=== PATIENT | female | born 1975 | race Caucasian/White ===

== ENCOUNTER 2024-11-09 13:53 | Emergency (ER) | payer MEDICAID ==
[~2024-11-09] VITALS: Ht 177.8 cm; Wt 146.5 kg
--- NOTE | 2024-11-09 15:56 | DVH ---
CHEST RADIOGRAPH Indication: fall blurred vision Technique: Single frontal view of the chest was obtained COMPARISON: None FINDINGS: Lines and Tubes: None Lungs: Clear Pleura: No effusion. No pneumothorax. Cardiomediastinal contours: Unremarkable Bones: Unremarkable IMPRESSION: No acute disease.
[2024-11-09 15:57] LABS: Basophils # (auto) 0.1 10 ^3/uL (0-0.2); Basophils % (auto) 0.9 % (0.0-2.0); Eosinophils # (auto) 0.2 10 ^3/uL (0-0.8); Eosinophils % (auto) 1.6 % (0.0-7.0); Hematocrit 45.5 % (36.0-46.0); Hemoglobin 15.7 g/dL (12.2-16.2); Lymphocytes # (auto) 2.8 10 ^3/uL (0.4-5.4); Lymphocytes % (auto) 25.6 % (10.0-50.0); Mean Corpuscular Hemoglobin 27.5 pg (28.0-32.0); Mean Corpuscular Hgb Conc. 34.6 g/dL (32.0-36.0); Mean Corpuscular Volume 79.7 fL (80.0-100.0); Monocytes # (auto) 0.6 10 ^3/uL (0-1.3); Monocytes % (auto) 5.8 % (0.0-12.0); Neutrophils # (auto) 7.1 10 ^3/uL (1.6-8.6); Neutrophils % (auto) 66.1 % (37.0-80.0); Nucleated Red Blood Cells % 0.7 %; Platelet Count (auto) 273 10^3/uL (140-450); Red Blood Cells 5.71 10^6/uL (4.0-5.20); Red Cell Distribution Width 15.6 % (11.8-14.3); White Blood Cell 10.8 10^3/uL (4.4-10.8)
[2024-11-09 16:07] LABS: Chloride 99 mmol/L (98-107); Sodium 137 mmol/L (136-145)
[2024-11-09 16:08] LABS: Anion Gap 9 (5-15); Carbon Dioxide 29 mmol/L (20-31)
[2024-11-09 16:12] LABS: Calcium 10.4 mg/dL (8.7-10.4); Potassium 3.5 mmol/L (3.5-5.1)
[2024-11-09 16:13] LABS: BUN/Creatinine Ratio 23.5 (10.0-20.0); Blood Urea Nitrogen 24 mg/dL (9-23); Glucose 99 mg/dL (74-106)
--- NOTE | 2024-11-09 16:20 | ED.PDOC ---
Mari. trauma (HPI) HPI Comments 48 year old female to male transgender individual DRE presents to the ED with chief complaint of facial injury s/p fall. Patient reports that he had accidentally tripped over a curb, causing him to fall face first into concrete. Patient relays that he may have lost consciousness briefly, however, he has associated symptoms of nausea, double vision, blurred vision, right elbow pain, and bilateral knee pain. Patient denies any dizziness, headache, vomiting, chest pain, or SOB. 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 History Family History Family History: Reviewed,noncontributory to illness, Unknown Social History Smoker: Non-Smoker Alcohol: Denies ETOH Use Drugs: Denies Drug Use Lives In: Home Constitutional: denies: chills, diaphoresis, fatigue, fever, malaise, sweats, weakness, others EENTM: reports: blurred vision, double vision; denies: ear bleeding, ear discharge, ear drainage, ear pain, ear ringing, eye pain, eye redness, hearing loss, mouth pain, mouth swelling, nasal discharge, nose bleeding, nose congestion, nose pain, photophobia, tearing, throat pain, throat swelling, voice changes, others Respiratory: denies: cough, hemoptysis, orthopnea, SOB at rest, shortness of breath, SOB with excertion, stridor, wheezing, others Cardiovascular: denies: chest pain, dizzy spells, diaphoresis, Dyspnea on exertion, edema, irregular heart beat, left arm pain, lightheadedness, palpitations, PND, syncope, others Gastrointestinal: reports: nausea; denies: abdomen distended, abdominal pain, blood streaked bowels, constipated, diarrhea, dysphagia, difficulty swallowing, hematemesis, melena, poor appetite, poor fluid intake, rectal bleeding, rectal pain, vomiting, others Genitourinary: denies: abnormal vagina bleeding, burning, dyspareunia, dysuria, flank pain, frequency, hematuria, incontinence, pain, , vagina discharge, urgency, others Neurological: denies: dizziness, fainting, headache, left sided numbness, left sided weakness, numbness, paresthesia, pre-existing deficit, right sided numbness, right sided weakness, seizure, speech problems, tingling, tremors, weakness, others Musculoskeletal: denies: back pain, gout, joint pain, joint swelling, muscle pain, muscle stiffness, neck pain, others Integumetry: reports: others (Abrasions to nose and forehead); denies: bruises, change in color, change in hair/nails, dryness, laceration, lesions, lumps, rash, wounds Allergic/Immunocompromised: denies: Difficulty Healing, Frequent Infections, Hives, Itching, others Hematologic/Lymphatic: denies: anemia, blood clots, easy bleeding, easy bruising, swollen glands, others Endocrine: denies: excessive hunger, excessive sweating, excessive thirst, excessive urination, flushing, intolerance to cold, intolerance to heat, unexplained weight gain, unexplained weight loss, others Psychiatric: denies: anxiety, bipolar disorder, depression, hopeless, panic disorder, schizophrenia, sleepless, suicidal, others All Other Systems: Reviewed and Negative Physical Exam General Appearance: No Apparent Distress, Obese HEENT: PERRL/EOMI, Other (mid-facial/nasal mild bruising/sts/superficial abrasions) Neck: Full Range of Motion, Normal Inspection, Supple, Other (Midline and paraspinal upper cervical soft tissue tenderness.) Respiratory: Lungs Clear, No Accessory Muscle Use, No Respiratory Distress, Normal Breath Sounds, Other (Bilateral upper anterior chest wall soft tissue tenderness) Cardiovascular: No Edema, No JVD, Regular Rate/Rhythm Breast Exam: Deferred Gastrointestinal: Non Tender, Soft Genitalia: Deferred Pelvic: Deferred Rectal: Deferred Extremities: Normal inspection, Normal range of motion, No pedal edema, Tender (bilateral knees anterior aspect. R elbow olecranon area) Neurologic: Alert (oriented x 4), Normal Affect, Normal Mood, Other (ambulatory without difficulty) Cerebellar Function: NOT DONE Reflexes: NOT DONE Skin: Dry, Normal Color, Warm Lymphatic: NOT DONE Was a procedure done? Was a procedure done?: No Differential Diagnosis Multiple Trauma: Closed Head Injury, Fractures, Cerebral Contusion, Contusion X-Ray, Labs, Meds, VS Vital Signs Date Time Temp Pulse Resp B/P (MAP) Pulse Ox O2 Delivery O2 Flow Rate FiO2 11/09/24 17:07 103 16 131/72 11/09/24 17:02 65 16 95 Room Air* 0 21 11/09/24 17:02 98.4 103 16 131/72 (91) 95 98.4 11/09/24 14:00 98.0 99 17 116/91 (99) 99 98.0 Lab Test 11/09/24 16:53 11/09/24 15:34 Range/Units Troponin I High Sensitivity < 3 L < 3 L </=34 ng/L White Blood Count 10.8 4.4-10.8 10^3/uL Red Blood Count 5.71 H 4.0-5.20 10^6/uL Hemoglobin 15.7 12.2-16.2 g/dL Hematocrit 45.5 36.0-46.0 % Mean Corpuscular Volume 79.7 L 80.0-100.0 fL Mean Corpuscular Hemoglobin 27.5 L 28.0-32.0 pg Mean Corpuscular Hemoglobin Concent 34.6 32.0-36.0 g/dL Red Cell Distribution Width 15.6 H 11.8-14.3 % Platelet Count 273 140-450 10^3/uL Mean Platelet Volume 8.1 6.9-10.8 fL Neutrophils (%) (Auto) 66.1 37.0-80.0 % Lymphocytes (%) (Auto) 25.6 10.0-50.0 % Monocytes (%) (Auto) 5.8 0.0-12.0 % Eosinophils (%) (Auto) 1.6 0.0-7.0 % Basophils (%) (Auto) 0.9 0.0-2.0 % Neutrophils # (Auto) 7.1 1.6-8.6 10 ^3/uL Lymphocytes # (Auto) 2.8 0.4-5.4 10 ^3/uL Monocytes # (Auto) 0.6 0-1.3 10 ^3/uL Eosinophils # (Auto) 0.2 0-0.8 10 ^3/uL Basophils # (Auto) 0.1 0-0.2 10 ^3/uL Nucleated Red Blood Cells 0.7 % Sodium Level 137 136-145 mmol/L Potassium Level 3.5 3.5-5.1 mmol/L Chloride Level 99 98-107 mmol/L Carbon Dioxide Level 29 20-31 mmol/L Anion Gap 9 5-15 Blood Urea Nitrogen 24 H 9-23 mg/dL Creatinine 1.02 0.550-1.02 mg/dL Glomerular Filtration Rate Calc 68 >90 mL/min BUN/Creatinine Ratio 23.5 H 10.0-20.0 Serum Glucose 99 74-106 mg/dL Calcium Level 10.4 8.7-10.4 mg/dL B-Type Natriuretic Peptide 2.46 0-100 pg/mL Beta HCG, Quantitative 0.5 L 1.5-4.2 mIU/mL Current Medications Medications (Trade) Dose Ordered Sig/Neela Route Start Time Stop Time Status Last Admin Morphine Sulfate 4 mg ONCE ONCE IV 11/09/24 15:45 11/09/24 15:46 DC 11/09/24 17:07 Ondansetron HCl (Zofran) 4 mg ONCE ONCE IV 11/09/24 15:45 11/09/24 15:46 DC 11/09/24 17:07 Sodium Chloride 1,000 ml @ 1,000 mls/hr Q1H ONCE IV 11/09/24 15:45 11/09/24 16:44 DC 11/09/24 17:12 PROCEDURE(s): HWOCT - HEAD WITHOUT CONTRAST REASON: fall head inj blurred vision ORDER NUMBER(s): [id number], ACCESSION NUMBER(s): [id number] EXAM: CT HEAD WITHOUT CONTRAST HISTORY: fall head inj blurred vision COMPARISON: None TECHNIQUE: Axial images of the head were obtained and reformatted in coronal and sagittal planes. All CT scans at this medical facility are performed using dose modulation techniques as appropriate to a performed exam including the following: Automated exposure control was utilized; adjustment of the MA and/or KV according to patient size; and use of iterative reconstruction technique. CT Dose: CTDI volume is 53 mGy. Dose-length product is 971 mGy*cm FINDINGS: There is no evidence of acute intracranial hemorrhage, mass, mass effect midline shift. There is no hydrocephalus or extra-axial fluid collection. Estevez-white matter differentiation is maintained. The visualized paranasal sinuses and mastoid air cells are clear. The calvarium is intact. IMPRESSION: 1. No acute intracranial process. HS:Y EDURE(s): FAC2C - MAXILLOFACIAL WITHOUT REASON: trauma ORDER NUMBER(s): [id number], ACCESSION NUMBER(s): [id number] HISTORY: trauma TECHNIQUE: Nonenhanced axial images through the facial bones with coronal and sagittal MPR. Radiation Dose Information: CT Dose: CTDI volume is 66.97 mGy. Dose-length product is 1448.08 mGy*cm COMPARISON: None FINDINGS: Mandible: Unremarkable Maxilla: Unremarkable Zygomatic arches: Unremarkable Nasal bone: Unremarkable Orbits: Unremarkable Sinuses: Clear Facial swelling: None IMPRESSION: 1. No acute facial fractures. Radiation optimization: All CT scans at this facility use at least one of these dose optimization techniques: automated exposure control mA and/or kV adjustment per patient size (includes targeted exams where dose is matched to clinical indication) or iterative reconstruction. PROCEDURE(s): CS2 - CERVICAL WITHOUT CONTRAST REASON: fall head injury neck pain ORDER NUMBER(s): [id number], ACCESSION NUMBER(s): [id number] CLINICAL HISTORY: fall head injury neck pain TECHNIQUE: CT exam of the cervical spine was performed without intravenous contrast. This exam was performed according to our departmental dose optimization program. Up-to-date CT equipment and radiation dose reduction techniques are utilized as appropriate. CTDI: 22.44 DLP: 726.58 WID: COMPARISON: None FINDINGS: There is normal cervical alignment. The vertebral body heights are maintained. No acute cervical fracture or subluxation is identified. Flowing anterior osteophytes in the cervical spine . Multilevel ossification of the posterior longitudinal ligament in the cervical spine. No high-grade central or neural foraminal narrowing is identified. The paraspinous soft tissues are unremarkable. The lung apices are clear. IMPRESSION: No acute fracture or traumatic malalignment. EDURE(s): CXRP - CHEST PORTABLE REASON: fall blurred vision ORDER NUMBER(s): [id number], ACCESSION NUMBER(s): [id number] CHEST RADIOGRAPH Indication: fall blurred vision Technique: Single frontal view of the chest was obtained COMPARISON: None FINDINGS: Lines and Tubes: None Lungs: Clear Pleura: No effusion. No pneumothorax. Cardiomediastinal contours: Unremarkable Bones: Unremarkable IMPRESSION: No acute disease. EDURE(s): RELB3 - R ELBOW 3 VIEW XRAY REASON: trauma ORDER NUMBER(s): [id number], ACCESSION NUMBER(s): [id number] CLINICAL INDICATION: trauma TECHNIQUE: 3-view right elbow XY R ELBOW 3 VIEW XRAY Comparison: None FINDINGS/IMPRESSION: : There is no evidence of acute fracture or dislocation. Soft tissues are unremarkable. EDURE(s): RKN3 - R KNEE 3V XRAY REASON: trauma ORDER NUMBER(s): [id number], ACCESSION NUMBER(s): [id number] EXAM: XY R KNEE 3V XRAY HISTORY: trauma COMPARISON: None TECHNIQUE: 3 views of the right knee were performed. FINDINGS: No acute fracture is identified about the right knee. There are tricompartmental marginal osteophytes of the right knee. There is moderate to severe joint space narrowing of the medial compartment. There are enthesophytes on the tibial tubercle and superior and inferior poles of the patella. No evidence of significant joint effusion. IMPRESSION: Degenerative changes of the right knee without evidence of fracture. EDURE(s): LKNE3 - L KNEE 3V XRAY REASON: trauma ORDER NUMBER(s): [id number], ACCESSION NUMBER(s): [id number] EXAM: XY L KNEE 3V XRAY HISTORY: trauma COMPARISON: None TECHNIQUE: 3 views of the left knee were performed. FINDINGS: No acute fracture is identified about the left knee. There are tricompartmental marginal osteophytes. There is moderate joint space narrowing of the medial compartment. There are enthesophytes on the superior and inferior poles of the patella.. No evidence of significant joint effusion. IMPRESSION: Degenerative changes of the left knee without evidence of fracture. X-Ray, Labs, Meds, VS Comment 48-year-old female to male transgender individual complaining of facial pain, neck pain, chest wall pain, right elbow pain and bilateral knee pain status post mechanical trip and fall Vitals remarkable for heart rate 103 Exam remarkable for mid facial soft tissue tenderness, mild bruising and superficial abrasions, posterior neck soft tissue tenderness, bilateral upper chest wall soft tissue tenderness, right elbow olecranon area soft tissue tenderness, bilateral anterior knee soft tissue tenderness Rhythm strip independently interpreted by me: Sinus tach, rate 103, no ectopy. CT head, maxillofacial bones, cervical spine, chest x-ray, right elbow x-ray, bilateral knee x-rays unremarkable for any acute fracture or acute severe injury. CBC and basic metabolic panel unremarkable, BNP and troponin negative Patient treated with the following in the ED: 1 L 0.9 normal saline IV bolus, morphine 4 mg IV, Zofran 4 mg IV, Tdap 0.5 mL IM On re-evaluation, patient states pain has improved. Vitals are stable. There was no focal neurologic deficit on exam Hospitalization was considered, however patient had rapid improvement of symptoms with treatment in the ED, and I no longer feel hospitalization is necessary. Patient now appears stable for discharge with close outpatient follow-up with his primary physician. Rx [place], ibuprofen, bacitracin Time of 1ST Reevaluation: 17:15 Reevaluation 1ST: Improved Time of 2ND Reevaluation: 19:16 Reevaluation 2ND: Improved Patient Education/Counseling: Diagnosis, Treatment Family Education/Counseling: No Family Present Departure 1 Departure Time of Disposition: 19:13 Impression: Primary Impression: Concussion Additional Impressions: Facial contusion Neck strain Strain of chest wall Contusion of right elbow Contusion of knee, left Contusion of knee, right Disposition: 01 HOME / SELF CARE / HOMELESS Condition: Stable Additional Instructions: All of your imaging studies were unremarkable except for both knees, which showed arthritis type changes. No acute serious injury was seen on imaging. Your blood tests were unremarkable. I have prescribed pain medication and antibiotic ointment for your abrasions. Follow-up with your primary doctor in 1-2 days. Return to ER for persistent or worsening pain. e-Prescriptions Bacitracin (Bacitracin Oint) 1 Applic Ap 1 APPLIC TOP TID, #30 GRAMS apply to abrasions tid until healed Prov: MINERVA TALLEY MD 11/09/24 Ibuprofen Micronized (Ibuprofen) 800 Mg Tab 800 MG PO Q8HP PRN, #30 TAB prn pain, take with food Prov: MINERVA TALLEY MD 11/09/24 Hydrocodone-Acetaminophen (Hydrocodone Bitartrate/AC 5-325 mg) 1 Tab Tab 1 TAB PO Q6HP PRN, #30 TAB prn pain Prov: MINERVA TALLEY MD 11/09/24 Discharged With: Relative Critical Care Note Critical Care Time?: No Stability Stability form required: No Heart Score Heart Score: Heart Score Response (Comments) Value History N/A 0 EKG N/A 0 Age N/A 0 Risk Factors N/A 0 Troponin N/A 0 Total 0 I personally scribed for MINERVA TALLEY MD ([email or web address]) on 11/09/24 at 16:19. Electronically submitted by Sonido Ayoub ([email or web address]). MINERVA TALLEY MD Nov 09, 2024 16:19
--- NOTE | 2024-11-09 16:26 | DVH ---
CLINICAL HISTORY: fall head injury neck pain TECHNIQUE: CT exam of the cervical spine was performed without intravenous contrast. This exam was pe rformed according to our departmental dose optimization program. Up-to-date CT equipment and radiatio n dose reduction techniques are utilized as appropriate. CTDI: 22.44 DLP: 726.58 WID: COMPARISON: None FINDINGS: There is normal cervical alignment. The vertebral body heights are maintained. No acute cervical frac ture or subluxation is identified. Flowing anterior osteophytes in the cervical spine . Multilevel o ssification of the posterior longitudinal ligament in the cervical spine. No high-grade central or ne ural foraminal narrowing is identified. The paraspinous soft tissues are unremarkable. The lung apic es are clear. IMPRESSION: No acute fracture or traumatic malalignment.
--- NOTE | 2024-11-09 16:39 | DVH ---
EXAM: XY L KNEE 3V XRAY HISTORY: trauma COMPARISON: None TECHNIQUE: 3 views of the left knee were performed. FINDINGS: No acute fracture is identified about the left knee. There are tricompartmental marginal osteophytes . There is moderate joint space narrowing of the medial compartment. There are enthesophytes on the superior and inferior poles of the patella.. No evidence of significant joint effusion. IMPRESSION: Degenerative changes of the left knee without evidence of fracture.
--- NOTE | 2024-11-09 16:40 | DVH ---
EXAM: XY R KNEE 3V XRAY HISTORY: trauma COMPARISON: None TECHNIQUE: 3 views of the right knee were performed. FINDINGS: No acute fracture is identified about the right knee. There are tricompartmental marginal osteophyte s of the right knee. There is moderate to severe joint space narrowing of the medial compartment. Th ere are enthesophytes on the tibial tubercle and superior and inferior poles of the patella. No evid ence of significant joint effusion. IMPRESSION: Degenerative changes of the right knee without evidence of fracture.
--- NOTE | 2024-11-09 16:41 | DVH ---
CLINICAL INDICATION: trauma TECHNIQUE: 3-view right elbow XY R ELBOW 3 VIEW XRAY Comparison: None FINDINGS/IMPRESSION: : There is no evidence of acute fracture or dislocation. Soft tissues are unremarkable.
--- NOTE | 2024-11-09 16:53 | DVH ---
HISTORY: trauma TECHNIQUE: Nonenhanced axial images through the facial bones with coronal and sagittal MPR. Radiation Dose Information: CT Dose: CTDI volume is 66.97 mGy. Dose-length product is 1448.08 mGy*cm COMPARISON: None FINDINGS: Mandible: Unremarkable Maxilla: Unremarkable Zygomatic arches: Unremarkable Nasal bone: Unremarkable Orbits: Unremarkable Sinuses: Clear Facial swelling: None IMPRESSION: 1. No acute facial fractures. Radiation optimization: All CT scans at this facility use at least one of these dose optimization robyn hniques: automated exposure control mA and/or kV adjustment per patient size (includes targeted exam s where dose is matched to clinical indication) or iterative reconstruction.
[2024-11-09 17:02] VITALS: PULSE 65; RESP 16; TEMP 98.4; O2SAT 95
[2024-11-09] MEDS: ONDANSETRON HCL 4 MG/2 ML VIAL IV ONE (17:07)
[2024-11-09] MEDS: MORPHINE SULFATE 4 MG/ML SYR/VIAL IV ONE (17:07)
[2024-11-09] MEDS: SODIUM CHLORIDE 0.9% 1,000 ML IV ONE (17:12)
[2024-11-09] MEDS ORDERED: HYDR-4902 PO (19:20)
[2024-11-09] MEDS ORDERED: IBUP-1455 PO (19:20)
[2024-11-09] MEDS ORDERED: BAC09TP TOP (19:21)
[2024-11-09] MEDS: TETANUS-DIPTH-ACEL PERTUSSIS 0.5ML SYR Tdap IM ONE (19:50)
[2024-11-09 19:53] VITALS: BP 125/89; PULSE 92; RESP 18
== END 2024-11-09 19:55 | disposition home or self-care (01) ==
LOC: EDBD 13:53 → ER 13:53
DX: S16.1XXA Strain of muscle, fascia and tendon at neck level, initial encounter (principal); S29.011A Strain of muscle and tendon of front wall of thorax, initial encounter; S06.0X0A Concussion without loss of consciousness, initial encounter; S50.01XA Contusion of right elbow, initial encounter; S80.01XA Contusion of right knee, initial encounter; S80.02XA Contusion of left knee, initial encounter; R06.02 Shortness of breath; J45.909 Unspecified asthma, uncomplicated; I10 Essential (primary) hypertension; W19.XXXA Unspecified fall, initial encounter; Y93.89 Activity, other specified; Y92.89 Other specified places as the place of occurrence of the external cause; Y99.8 Other external cause status
CPT/HCPCS: 36415; 70450; 70486; 71045; 72125; 73080; 73562; 80048; 83880; 84484; 84702; 85025; 90471; 90715; 96374; 96375; 99285; J2270; J2405